=== PATIENT | female | born 1965 | race Caucasian/White ===

== ENCOUNTER 2017-12-03 12:33 | Emergency (ER) | END 2017-12-03 15:00 | disposition home or self-care (01) ==

== ENCOUNTER 2018-04-09 07:51 | Emergency (ER) | END 2018-04-09 10:07 | disposition home or self-care (01) ==

== ENCOUNTER 2019-03-27 02:22 | Emergency (ER) | payer BC ==
[~2019-03-27] VITALS: Ht 170.2 cm; Wt 59.1 kg
[~2019-03-27 02:22] MED LIST: AZIT250T PO; DOXY100T20 PO; FAMO20TA18 PO; HC30CR25 TOP; HYDR-3029 PO; HYDR-842 PO; NAPR-985 PO; PRED20TA PO
[2019-03-27 02:40] VITALS: Ht 170.2 cm; Wt 59.1 kg
[2019-03-27] MEDS ORDERED: LORAZEPAM 1 MG TAB PO ONE (03:00)
[2019-03-27] MEDS ORDERED: IPRATROPIUM (NEB) 0.5 MG/2.5 ML AMP NEB STA ×2 (04:32→05:10)
[2019-03-27] MEDS ORDERED: ALBUTEROL 0.083% (NEB) 2.5 MG/3 ML AMP NEB STA ×2 (04:32→05:10)
--- NOTE | 2019-03-27 05:25 | ERD ---
ER Documentation Chief Complaint Chief Complaint ETOH, Pt states asthma, and ativan withdrawl for 5 days HPI This is a 53-year-old female here with complaints of asthma. She said she is al so withdrawing from Ativan for the past 5 days with any fevers or chills. Denies any nausea vomiting. She says she is a chronic alcoholic and she drank today. ROS All systems reviewed and are negative except as per history of present illness. Medications Home Meds Discontinued Scripts Doxycycline Hyclate* (Doxycycline Hyclate*) 100 Mg Tablet.dr, 100 MG PO BID for 10 Days, TAB Prov:SEBASTIAN ZHENG PA-C 04/09/18 Azithromycin* (Zithromax*) 250 Mg Tablet, 250 MG PO .JaylenPAERASMO DIRECTED, #6 TAB TAKE 500 MG (2 TABS) THE FIRST DAY THEN 250 MG (1 TAB) DAYS 2-5 Prov:SEBATSIAN ZHENG PA-C 04/09/18 Naproxen* (Naprosyn*) 500 Mg Tablet, 500 MG PO BID PRN for PAIN AND/OR INFLAMMATION, #30 TAB Prov:SEBASTIAN ZHENG PA-C 04/09/18 Hydroxyzine Hcl* (Hydroxyzine Hcl*) 10 Mg Tablet, 10 MG PO Q6H PRN for ITCHING, #30 TAB Prov:SEBASTIAN ZHENG PA-C 04/09/18 Hydrocortisone* Topical (Hydrocortisone* Topical) 2.5%-28.3 Gm Cream..g., 1 APPLIC TOP BID, #1 TUB Prov:SEBASTIAN ZHENG PA-C 04/09/18 Prednisone (Prednisone) 20 Mg Tablet, 40 MG PO DAILY for 3 Days, TAB Prov:OSIRIS SCHAEFER DO 12/03/17 Famotidine* (Famotidine*) 20 Mg Tablet, 20 MG PO BID, #6 TAB Prov:OSIRIS SCHAEFER DO 18 Hydroxyzine Hcl* (Atarax*) 25 Mg Tab, 25 MG PO TID, #14 TAB Prov:GREENOSIRIS DO 18 Azithromycin* (Zithromax*) 250 Mg Tablet, 250 MG PO .[place]OR[place] DIRECTED, #6 TAB TAKE 500 MG (2 TABS) THE FIRST DAY THEN 250 MG (1 TAB) DAYS 2-5 Prov:OSIRIS SCHAEFER DO 12/03/17 Allergies Allergies: Coded Allergies: Penicillins (Unverified Allergy, Unknown, 03/27/19) PMhx/Soc History of Surgery: No (KNEE) Anesthesia Reaction: No Hx Neurological Disorder: No Hx Respiratory Disorders: Yes (ASTHMA) Hx Cardiac Disorders: No Hx Psychiatric Problems: No Hx Miscellaneous Medical Probl: No Hx Alcohol Use: Yes Hx Substance Use: No Hx Tobacco Use: No Smoking Status: Never smoker Physical Exam Vitals Vital Signs Date Temp Pulse Resp B/P (MAP) Pulse Ox O2 O2 Flow FiO2 Time Delivery Rate 03/27/19 100 3.0 04:46 03/27/19 121 21 100 Nasal 3.0 04:43 Cannula 03/27/19 98.1 104 15 122/81 100 Room Air 03:19 (95) 03/27/19 98.1 106 15 122/81 100 02:40 (95) Physical Exam Const: No acute distress Head: Atraumatic Eyes: Normal Conjunctiva ENT: Normal External Ears, Nose and Mouth. Neck: Full range of motion. No meningismus. Resp: Clear to auscultation bilaterally Cardio: Regular rate and rhythm, no murmurs Abd: Soft, non tender, non distended. Normal bowel sounds Skin: No petechiae or rashes Back: No midline or flank tenderness Ext: No cyanosis, or edema Neur: Awake and alert Psych: Normal Mood and Affect Results 24 hrs Current Medications Medications Dose Sig/Racheal Start Time Status Last (Trade) Ordered Route PRN Stop Time Admin Dose Reason Admin Lorazepam 2 mg ONCE ONCE 03/27/19 DC 03/27/19 (Ativan) PO 03:00 02:49 03/27/19 03:01 Albuterol 5 mg ONCE STAT 03/27/19 DC 03/27/19 (Proventil NEB 04:32 04:40 0.083% (Neb)) 03/27/19 04:33 Ipratropium 0.5 mg ONCE STAT 03/27/19 DC 03/27/19 [place] NEB 04:32 04:40 (Atrovent 03/27/19 04:33 0.02% (Neb)) Albuterol 5 mg ONCE STAT 03/27/19 DC 03/27/19 (Proventil NEB 05:10 05:16 0.083% (Neb)) 03/27/19 05:11 Ipratropium 0.5 mg ONCE STAT 03/27/19 DC 03/27/19 [place] NEB 05:10 05:16 (Atrovent 03/27/19 05:11 0.02% (Neb)) Procedures/MDM Chest X-ray 1V Interpreted by me: Soft Tissue: No acute abnormalities Bones: No acute abnormalities Mediastinum/Cardiac Silhouette/Lungs: [No acute abnormalities] Medical decision making: Patient's respiratory status has stabilized while in the department and is appropriate for outpatient work up. Exam and work up not consistent w/ impending respiratory failure or cardiovascular collapse. For withdrawal symptoms. Will be discharged with short course of Ativan to follow-up with primary care physician. Also advised to stop drinking Departure Diagnosis: Primary Impression: Alcoholic intoxication Complication of substance-induced condition: uncomplicated Qualified Codes: F10.920 - Alcohol use, unspecified with intoxication, uncomplicated Condition: Stable BRIA PAK March 27, 2019 05:25
[2019-03-27] MEDS ORDERED: LORA-441 PO (05:26)
[2019-03-27] MEDS ORDERED: ALBU2.5V3 NEB (05:55)
[2019-03-27 05:58] VITALS: BP 128/69; PULSE 118; RESP 18
== END 2019-03-27 05:58 | disposition home or self-care (01) ==
LOC: E/R 02:22
DX: F10.920 Alcohol use, unspecified with intoxication, uncomplicated (principal); J45.901 Unspecified asthma with (acute) exacerbation; R06.02 Shortness of breath
CPT/HCPCS: 71045; 94640; 94664; Z7502; Z7610

== ENCOUNTER 2019-03-30 19:47 | Emergency (ER) | payer BC ==
[~2019-03-30] VITALS: Ht 170.2 cm; Wt 59.0 kg
[~2019-03-30 19:47] MED LIST changes: +ALBU2.5V3 NEB; -AZIT250T PO; -DOXY100T20 PO; -FAMO20TA18 PO; -HC30CR25 TOP; -HYDR-3029 PO; -HYDR-842 PO; +LORA-441 PO; -NAPR-985 PO; -PRED20TA PO
[2019-03-30 19:56] VITALS: BP 120/68; PULSE 112; RESP 20; Ht 170.2 cm; Wt 59.0 kg
--- NOTE | 2019-03-30 21:10 | ERD ---
ER Documentation Chief Complaint Chief Complaint bib ra 100 c/o leg cramping, painful/dark urine HPI 53-year-old female with no reported past medical history presents with multiple complaints including sinus congestion, lower extremity leg cramping, sore throat, painful urination. States she self diagnosed herself about 2 weeks ago with laryngitis. Was in this emergency room on the for questionable Ativan and EtOH withdrawal type symptoms. Discharged with Ativan as well as albuterol. States she been eating and drinking but with painful swallowing. Was given a short course of levofloxacin at another clinic. Also with complaint of urinary itching and burning. Describes vague intermittent upper and lower extremity cramping. Patient is concerned that her potassium may be low. She denies any history of electrolyte abnormalities. Has been eating and drinking appropriate amounts of liquids. She otherwise denies chest pain, shortness of breath, dyspnea, nausea, vomiting, diarrhea, abdominal pain. Time evaluation patient is nontoxic-appearing with normal triage vital signs. ROS All systems reviewed and are negative except as per history of present illness. Medications Home Meds Active Scripts Albuterol Sulfate* (Albuterol Sulfate* Neb) 0.083%-3 Ml Neb, 2.5 MG NEB Q4 PRN for SHORTNESS OF BREATH, #30 EA Prov:BRIA PAK 03/27/19 Lorazepam* (Ativan*) 0.5 Mg Tablet, 0.5 MG PO Q8H PRN for ANXIETY, #10 TAB Prov:BRIA PAK. 03/27/19 Discontinued Scripts Doxycycline Hyclate* (Doxycycline Hyclate*) 100 Mg Tablet.dr, 100 MG PO BID for 10 Days, TAB Prov:SEBASTIAN ZHENG PA-C 04/09/18 Azithromycin* (Zithromax*) 250 Mg Tablet, 250 MG PO .[place]OR[place] DIRECTED, #6 TAB TAKE 500 MG (2 TABS) THE FIRST DAY THEN 250 MG (1 TAB) DAYS 2-5 Prov:SEBASTIAN ZHENG PA-C 04/09/18 Naproxen* (Naprosyn*) 500 Mg Tablet, 500 MG PO BID PRN for PAIN AND/OR INFLAMMATION, #30 TAB Prov:SEBASTIAN ZHENG PA-C 04/09/18 Hydroxyzine Hcl* (Hydroxyzine Hcl*) 10 Mg Tablet, 10 MG PO Q6H PRN for ITCHING, #30 TAB Prov:SEBASTIAN ZHENG PA-C 04/09/18 Hydrocortisone* Topical (Hydrocortisone* Topical) 2.5%-28.3 Gm Cream..g., 1 APPLIC TOP BID, #1 TUB Prov:SEBASTIAN ZHENG PA-C 04/09/18 Prednisone (Prednisone) 20 Mg Tablet, 40 MG PO DAILY for 3 Days, TAB Prov:OSIRIS SCHAEFER DO 12/03/17 Famotidine* (Famotidine*) 20 Mg Tablet, 20 MG PO BID, #6 TAB Prov:OSIRIS SCHAEFER DO 18 Hydroxyzine Hcl* (Atarax*) 25 Mg Tab, 25 MG PO TID, #14 TAB Prov:OSIRIS SCHAEFER DO 12/03/17 Azithromycin* (Zithromax*) 250 Mg Tablet, 250 MG PO .ZPACK DIRECTED, #6 TAB TAKE 500 MG (2 TABS) THE FIRST DAY THEN 250 MG (1 TAB) DAYS 2-5 Prov:OSIRIS SCHAEFER DO 12/03/17 Allergies Allergies: Coded Allergies: Penicillins (Unverified Allergy, Unknown, 03/27/19) PMhx/Soc History of Surgery: No (KNEE) Anesthesia Reaction: No Hx Neurological Disorder: No Hx Respiratory Disorders: Yes (ASTHMA) Hx Cardiac Disorders: No Hx Psychiatric Problems: No Hx Miscellaneous Medical Probl: No Hx Alcohol Use: Yes Hx Substance Use: No Hx Tobacco Use: No Smoking Status: Never smoker FmHx Family History: No diabetes, No coronary disease, No other Physical Exam Vitals Vital Signs Date Temp Pulse Resp B/P (MAP) Pulse Ox O2 O2 Flow FiO2 Time Delivery Rate 03/30/19 98.0 112 20 120/68 100 19:56 (85) Physical Exam I have reviewed the triage vital signs. Const: Well nourished, well developed, appears stated age Eyes: PERRL, no conjunctival injection HENT: NCAT, Neck supple without meningismus, bilateral ear canals without exudate, erythema, swelling, no sinus edema or tenderness CV: RRR, Warm, well-perfused extremities RESP: CTAB, Unlabored respiratory effort GI: soft, non-tender, non-distended, no masses MSK: No gross deformities appreciated Skin: Warm, dry. No rashes Neuro: grossly non focal Psych: Appropriate mood and affect. Results 24 hrs Laboratory Tests Test 03/30/19 20:35 Urine Color COLORLESS Urine Clarity CLEAR Urine pH 7.0 Urine Specific [place] 1.001 Urine Ketones NEGATIVE mg/dL Urine Nitrite NEGATIVE mg/dL Urine Bilirubin NEGATIVE mg/dL Urine Urobilinogen NEGATIVE mg/dL Urine Leukocyte Esterase NEGATIVE Kate/ul Urine Hemoglobin NEGATIVE mg/dL Urine Glucose NEGATIVE mg/dL Urine Total Protein NEGATIVE mg/dl Procedures/MDM 53-year-old female who presents with multiple complaints. Patient most concerned about urinary symptoms. Otherwise have low suspicion for any acute process warranting further emergent care or work-up. Patient is stable with normal triage vital signs. Course: UA unremarkable DISPOSITION PLAN: We discussed follow up with the patient's primary care doctor within 24 to 48 hours. Patient counseled regarding my diagnostic impression and care plan. Prior to discharge all questions answered. Pt agrees with treatment plan and understands strict return precautions. Precautionary instructions provided including instructions to return to the ER if not improving or for any worsening or changing symptoms or concerns. Disclaimer: Inadvertent spelling and grammatical errors are likely due to EHR/dictation software use and do not reflect on the overall quality of patient care. Also, please note that the electronic time recorded on this note does not necessarily reflect the actual time of the patient encounter. Departure Diagnosis: Primary Impression: Urinary symptom or sign Additional Impression: Multiple complaints Condition: Stable Patient Instructions: When You Have a Sore Throat Referrals: [facility] YOU HAVE RECEIVED A MEDICAL SCREENING EXAM AND THE RESULTS INDICATE THAT YOU DO NOT HAVE A CONDITION THAT REQUIRES URGENT TREATMENT IN THE EMERGENCY DEPARTMENT. FURTHER EVALUATION AND TREATMENT OF YOUR CONDITION CAN WAIT UNTIL YOU ARE SEEN IN YOUR DOCTORS OFFICE WITHIN THE NEXT 1-2 DAYS. IT IS YOUR RESPONSIBILITY TO MAKE AN APPOINTMENT FOR FOLOW-UP CARE. IF YOU HAVE A PRIMARY DOCTOR --you should call your primary doctor and schedule an appointment IF YOU DO NOT HAVE A PRIMARY DOCTOR YOU CAN CALL OUR PHYSICIAN REFERRAL HOTLINE AT IF YOU CAN NOT AFFORD TO SEE A PHYSICIAN YOU CAN CHOSE FROM THE FOLLOWING [facility] [address] [facility]. [facility] [address] [facility] [facility] [address] [facility] [address] [facility] [address] [facility]. [facility] [address] Additional Instructions: Call your primary care doctor TOMORROW for an appointment during the next 2-3 days.See the doctor sooner or return here if your condition worsens before your appointment time. TESSIE LOTT PA-C March 30, 2019 21:10
== END 2019-03-30 22:04 | disposition home or self-care (01) ==
LOC: FTE 19:47
DX: R39.9 Unspecified symptoms and signs involving the genitourinary system (principal); J45.909 Unspecified asthma, uncomplicated; R30.0 Dysuria; M79.606 Pain in leg, unspecified
CPT/HCPCS: 81003; Z7502; 99283